=== PATIENT | male | born 1990 | race Caucasian/White ===

== ENCOUNTER 2016-08-31 18:42 | Emergency (ER) | payer MEDICAID ==
[2016-08-31 18:51] VITALS: BP 138/102
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
[2016-08-31 19:23] LABS: ACETAMINOPHEN < 10
[2016-09-01 09:57] LABS: SODIUM,NA 137 mmol/L (135-145)
[2016-09-01 09:58] LABS: CHLORIDE,CL 100 mmol/L (101-111)
--- NOTE | 2016-09-08 15:08 | EKG ---
08/31/2016 - NORA MALONEY - TIME OF EK hours. I reviewed the EKG and agree with the machine's reading. [facility] /[id number]
== END 2016-08-31 20:17 ==
LOC: DL.ED 18:42
DX: T56.892A Toxic effect of other metals, intentional self-harm, initial encounter (principal); I10 Essential (primary) hypertension; F32.9 Major depressive disorder, single episode, unspecified
CPT/HCPCS: 80053; 80178; 80305; 81001; 82140; 82150; 83690; 83735; 84443; 85025; 99285; G0479; G0480; 36415

== ENCOUNTER 2016-10-11 22:34 | Emergency (ER) | payer MEDICAID ==
[2016-10-11] MEDS ORDERED: Sodium Chloride 0.9% 1,000 ML IV ONE (22:35)
[2016-10-11 22:42] VITALS: BP 145/88
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
[2016-10-11 22:57] LABS: CHLORIDE,CL 104 mmol/L (101-111); SODIUM,NA 139 mmol/L (135-145)
[2016-10-11 23:02] LABS: ACETAMINOPHEN < 10
[2016-10-11] MEDS ORDERED: Ondansetron 4 MG/2 ML SDV IV ONE (23:19)
== END 2016-10-11 23:33 ==
LOC: DL.ED 22:34
DX: F10.120 Alcohol abuse with intoxication, uncomplicated (principal); Y90.6 Blood alcohol level of 120-199 mg/100 ml; I10 Essential (primary) hypertension; F32.9 Major depressive disorder, single episode, unspecified; X83.8XXA Intentional self-harm by other specified means, initial encounter
CPT/HCPCS: 36415; 80053; 80305; 81001; 85025; 99285; G0480; J7030